=== PATIENT | male | born 1940 | race Caucasian/White ===

== ENCOUNTER → 2017-10-10 | Outpatient (CLI) | payer MEDICARE ==
[~2017-10-10] MED LIST: ASPI-555 PO; CLOP75TA14 PO; FAMO-136 PO; MELA1TAB21 PO; ROSU10TA PO; TAMS-1 PO; VALS1TAB73 PO
== END ==
LOC: RAH 11:14
PROVIDERS: ATTEND Physical Medicine & Rehabilitation
DX: M41.9 Scoliosis, unspecified (principal); M54.81 Occipital neuralgia
CPT/HCPCS: 72040

== ENCOUNTER 2017-11-07 13:45 | Inpatient (IN) | payer MEDICARE ==
[~2017-11-07] VITALS: Ht 170.2 cm; Wt 75.1 kg
[2017-11-07 14:37] LABS: BASOPHILS % (AUTO) 0.5 % (0.0-5.0); EOSINOPHILS % (AUTO) 0.4 % (0.0-8.0); HEMATOCRIT 39.3 % (42-54); LYMPHOCYTES % (AUTO) 19.7 % (21.0-51.0); MEAN CORPUSCULAR HEMOGLOBIN 30.8 pg (27.0-33.0); MEAN CORPUSCULAR HGB CONC 35.5 g/dL (32.0-36.0); MEAN CORPUSCULAR VOLUME 86.8 fL (79-99); MONOCYTES % (AUTO) 5.8 % (3.0-13.0); NEUTROPHILS % (AUTO) 73.6 % (40.0-77.0); PLATELET COUNT (AUTO) 224 K/uL (130-400); RED BLOOD CELL COUNT(AUTO) 4.53 MIL/uL (4.50-6.20); RED CELL DISTRIBUTION WIDTH 13.7 % (11.0-15.5); WHITE BLOOD COUNT (AUTO) 7.7 K/uL (4.8-10.8)
[2017-11-07 14:43] LABS: PARTIAL THROMBOPLASTIN TIME 25.7 SEC (26.3-35.5); PROTHROMBIN TIME 10.5 SEC (9.6-11.6)
[2017-11-07 14:44] LABS: POTASSIUM 3.6 mmol/L (3.5-5.1)
[2017-11-07 14:56] LABS: ALBUMIN 3.3 g/dL (3.5-5.0); BILIRUBIN,TOTAL 0.3 mg/dL (0.2-1.0); CREATINE KINASE MB 1.5 ng/mL (0.5-3.6); TOTAL PROTEIN, SERUM 6.1 g/dL (6.0-8.3)
[2017-11-07 15:44] LABS: APPEARANCE,URINE Clear (CLEAR); BILIRUBIN,URINE Negative (NEGATIVE); COLOR,URINE Yellow (YELLOW); GLUCOSE, URINE (UA) Negative (NEGATIVE); KETONES,URINE Negative (NEGATIVE); LEUKOCYTE ESTERASE ,URINE Negative (NEGATIVE); NITRATE,URINE Negative (NEGATIVE); OCCULT BLOOD,URINE Negative (NEGATIVE); PROTEIN,URINE Negative (NEGATIVE); UROBILINOGEN,URINE 0.2 mg/dL (0.2-1.0)
[2017-11-07 15:52] LABS: AMPHET/METH SCREEN,URINE NEGATIVE (NEGATIVE); BARBITURATE SCREEN, URINE NEGATIVE (NEGATIVE); BENZODIAZEPINES SCREEN,URINE NEGATIVE (NEGATIVE); CANNABINOID SCREEN,URINE NEGATIVE (NEGATIVE); COCAINE SCREEN,URINE NEGATIVE (NEGATIVE); OPIATE SCREEN,URINE NEGATIVE (NEGATIVE); PHENCYCLIDINE SCREEN,URINE NEGATIVE (NEGATIVE)
[2017-11-07] MEDS ORDERED: MECLIZINE HCL 25 MG TABLET ONE (17:10)
[2017-11-07] MEDS ORDERED: SODIUM CHLORIDE 0.9% 500ML 500 ML IV ONE (17:11)
[2017-11-07] MEDS ORDERED: ONDANSETRON HCL 4 MG/2 ML VIAL ONE (17:11)
[2017-11-07] MEDS ORDERED: ASPIRIN 325 MG TABLET ONE (17:11)
[2017-11-07] MEDS ORDERED: HYDRALAZINE HCL 20 MG/ML VIAL IV PRN (18:15)
[2017-11-07] MEDS ORDERED: LACTULOSE 20 GM/30 ML UDCUP PO PRN (18:15)
[2017-11-07] MEDS ORDERED: GUAIFENESIN-DM 200/20 MG 10 ML PO PRN (18:15)
[2017-11-07] MEDS ORDERED: ZOLPIDEM TARTRATE 5 MG TAB PO PRN (18:15)
[2017-11-07] MEDS ORDERED: MECLIZINE HCL 25 MG TABLET PO PRN (18:15)
[2017-11-07] MEDS ORDERED: ONDANSETRON HCL 4 MG/2 ML VIAL IV PRN (18:15)
[2017-11-07] MEDS ORDERED: MORPHINE SULFATE 2 MG/ML 1ML SYG IV PRN (18:15)
[2017-11-07] MEDS ORDERED: ASPI-555 PO (22:38)
[2017-11-07] MEDS ORDERED: MELA1TAB21 PO (22:38)
[2017-11-07] MEDS ORDERED: TAMS-1 PO (22:38)
[2017-11-07] MEDS ORDERED: VALS1TAB73 PO (22:38)
[2017-11-07 23:00] VITALS: BP 144/85
[2017-11-08 00:40] VITALS: BP 144/80
[2017-11-08 04:29] VITALS: BP 126/66
[2017-11-08 07:35] VITALS: BP 124/64
[2017-11-08] MEDS ORDERED: LOSARTAN/HYDROCHLOROTHIAZIDE 50-12.5MG TABLET PO SCH (08:00)
[2017-11-08] MEDS: ENOXAPARIN SODIUM 40 MG/0.4 ML SYRINGE SQ SCH (09:00)
[2017-11-08] MEDS: ASPIRIN 81 MG EC TAB PO SCH (09:00)
[2017-11-08] MEDS ORDERED: ASPIRIN 325 MG TABLET PO SCH (09:00)
[2017-11-08] MEDS: FAMOTIDINE 20MG TAB 20 MG TAB PO SCH (09:00)
[2017-11-08] MEDS: TAMSULOSIN HCL 0.4 MG CAP.ER.24H PO SCH (11:00)
[2017-11-08 11:35] VITALS: BP 132/79
[2017-11-08 15:45] VITALS: BP 127/73
[2017-11-08 20:10] VITALS: BP 118/69
[2017-11-08] MEDS ORDERED: ATORVASTATIN CALCIUM 20 MG TABLET PO SCH (21:00)
[2017-11-09 00:05] VITALS: BP 143/83
[2017-11-09 04:40] VITALS: BP 141/84
[2017-11-09 07:00] VITALS: BP 139/84
[2017-11-09] MEDS ORDERED: FAMO-136 PO (08:16)
[2017-11-09] MEDS ORDERED: ROSU10TA PO (08:16)
[2017-11-09] MEDS ORDERED: CLOP75TA14 PO (08:16)
[2017-11-09] MEDS ORDERED: CLOPIDOGREL BISULFATE 75 MG TAB PO SCH (09:00)
[2017-11-09] MEDS: FAMOTIDINE 20MG TAB 20 MG TAB PO SCH (09:31)
[2017-11-09] MEDS: ASPIRIN 81 MG EC TAB PO SCH (09:32)
[2017-11-09] MEDS: TAMSULOSIN HCL 0.4 MG CAP.ER.24H PO SCH (09:32)
[2017-11-09] MEDS: ENOXAPARIN SODIUM 40 MG/0.4 ML SYRINGE SQ SCH (09:33)
[2017-11-09 11:00] VITALS: BP 134/82
== END 2017-11-09 12:20 | disposition home or self-care (01) | DRG 65 ==
LOC: EDH 13:45 → EDHIP 18:12 → 3BH 21:53
PROVIDERS: ADMIT Family Medicine; ATTEND Family Medicine
DX: I63.9 Cerebral infarction, unspecified (principal); E44.1 Mild protein-calorie malnutrition; I10 Essential (primary) hypertension; M19.90 Unspecified osteoarthritis, unspecified site; N40.0 Benign prostatic hyperplasia without lower urinary tract symptoms
CPT/HCPCS: 36415; 70450; 70551; 71045; 80053; 80305; 81003; 82550; 82553; 82948; 83874; 84484; 85025; 85610; 85730; 93005; 93880; J1650; J2405; J7040